=== PATIENT | female | born 1950 | race Caucasian/White ===

== ENCOUNTER → 2017-01-31 | Day surgery (SDC) | payer MEDICARE ==
[~2017-01-31] MED LIST: ATOR40TA16 PO; BACT800T5 PO; BUPIVACAINE/EPINEPHRINE 0.5% PF 10 ML VIAL ONE; BUPR300T PO; CALC0.009 TOPICAL; CELE40TA PO; CLON1 PO; FURO20TA PO; LACTATED RINGER'S 1000 ML INJ 1,000 ML ONE; MIDAZOLAM HCL 2 MG/2 ML VIAL ONE; MOME0.05 TOPICAL; ONDANSETRON HCL 4 MG/2 ML VIAL IV PUSH ONE; ONETTES4; POTA-243 PO; PROPOFOL 200 MG/20 ML AMP IV ONE; TAB-TAB PO; TOPA50TA7 PO; ceFAZolin 2 GM PREMIX 50 ML ONE
--- NOTE | 2017-01-31 12:37 | TN ---
cc: JOHANNY JAMISON M.D. DATE OF SURGERY 01/31/2017 PREOPERATIVE DIAGNOSIS 1. Left breast mass and skin changes. 2. Palpable left axillary node. 3. History of left breast cancer. POSTOPERATIVE DIAGNOSIS 1. Left breast mass and skin changes. 2. Palpable left axillary node. 3. History of left breast cancer. PROCEDURE PERFORMED 1. Wide local excision skin lesion and underlying breast tissue left breast. 2. Excision left axillary node. 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 She noted an enlarging breast mass along her incision in the superior areolar position. It was getting larger and causing her discomfort. She also felt a small node in her left axilla. She had imaging of the node, although had benign criteria because her history of malignancy, she was worried about the node due to the fact it was getting larger along with the breast mass. She was seen in the office. I offered wide local excision of the skin lesion and breast mass in the left breast as well as a biopsy of left axillary node. The risks and benefits were discussed with her in detail and she was agreeable. DETAILS The patient was identified, brought to the operating room, placed supine on the operating room table. After adequate general anesthesia was achieved with LMA, the left breast and left axilla was prepped and draped in standard surgical fashion. The node had been marked by myself and the patient in the preoperative holding area. 0.25% Marcaine was injected. A transverse incision was made. Dissection was carried down through the axilla proper identifying the palpable node. It was grasped with an Allis clamp and dissected from surrounding tissue using electrocautery Bovie. Lymph node was sent to pathology for analysis. Next, the wound was irrigated with normal saline solution. The wound was then closed in two layers using a 3-0 and 4-0 Vicryl. Sterile dressings were applied. Attention was now direct the left breast lesion. The patient had a palpable left breast mass with overlying skin changes. Therefore an elliptical super-areolar incision was used to include the skin and subcutaneous tissue, skin and breast tissue associated with the mass. Dissection was accomplished using sharp dissection. The mass was excised in toto with the overlying skin and a short stitch was placed superior, a long stitch was a lateral. The wound was then irrigated with normal saline solution. Bleeding points were controlled with electrocautery Bovie. The wound was then closed in two layers using a 3-0 and 4-0 Vicryl. Sterile dressings were applied and the patient was awakened and brought to recovery in stable condition. Johanny MD INDY Jamison/CARMEN /12:05 PM /12:31 PM
== END | disposition home or self-care (01) ==
LOC: ESDC 09:18
PROVIDERS: ATTEND Surgery Trauma Surgery
DX: N63 Unspecified lump in breast (principal); Z85.3 Personal history of malignant neoplasm of breast; R59.0 Localized enlarged lymph nodes
CPT/HCPCS: 00400; 01610; 19120; 38525; 88307; 88309; 88312; J0690; J2250; J2405; J3010; J7120; 88305